=== PATIENT | male | born 2000 | race Two or more races ===

== ENCOUNTER 2018-11-15 22:40 | Emergency (ER) | payer SELFPAY ==
[~2018-11-15] VITALS: Ht 172.7 cm; Wt 63.5 kg
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
--- NOTE | 2018-11-16 01:53 | NUR ---
Patient discharged to home in stable condition. RX & Written and verbal after care instructions given. Patient verbalizes understanding of instruction. pt was provided w / a school and work noted. pt walked out w/ steady gait
[2018-11-16 01:56] VITALS: BP 121/68
== END 2018-11-16 01:56 | disposition home or self-care (01) ==
LOC: ER 22:44
DX: S66.891A Other injury of other specified muscles, fascia and tendons at wrist and hand level, right hand, initial encounter (principal); M54.5 Low back pain; M54.2 Cervicalgia; Z90.89 Acquired absence of other organs; V49.49XA Driver injured in collision with other motor vehicles in traffic accident, initial encounter; Y93.89 Activity, other specified; Y92.89 Other specified places as the place of occurrence of the external cause; Y99.8 Other external cause status
CPT/HCPCS: 72040; 72100; 73140; 99283; L0172

== ENCOUNTER 2021-09-17 12:41 | Emergency (ER) | payer MEDICAID, OTHER ==
[~2021-09-17] VITALS: Ht 167.6 cm; Wt 63.5 kg
[2021-09-17 12:49] VITALS: BP 123/69
--- NOTE | 2021-09-17 12:49 | NUR ---
MEDICATION REFILL FOR RITALIN 10MG/DAILY. WILL NEED A NEW PMD D/T INSURANCE
[2021-09-17] MEDS ORDERED: METH-359 PO (13:26)
--- NOTE | 2021-09-17 13:31 | NUR ---
Patient discharged to home in stable condition. Written and verbal after care instructions given. Patient verbalizes understanding of instruction.
== END 2021-09-17 13:32 | disposition home or self-care (01) ==
LOC: ER 12:58
DX: Z76.0 Encounter for issue of repeat prescription (principal); F90.9 Attention-deficit hyperactivity disorder, unspecified type

== ENCOUNTER 2021-09-18 12:32 | Emergency (ER) | payer OTHER ==
[~2021-09-18] VITALS: Ht 170.2 cm; Wt 63.5 kg
[~2021-09-18 12:32] MED LIST: METH-359 PO
[2021-09-18 12:39] VITALS: BP 109/97
--- NOTE | 2021-09-18 13:06 | NUR ---
dPatient discharged to home in stable condition. Written and verbal after care instructions given. Patient verbalizes understanding of instruction.
== END 2021-09-18 13:06 | disposition home or self-care (01) ==
LOC: ER 12:40
DX: S60.221A Contusion of right hand, initial encounter (principal); Z79.899 Other long term (current) drug therapy; X58.XXXA Exposure to other specified factors, initial encounter; Y93.89 Activity, other specified; Y92.89 Other specified places as the place of occurrence of the external cause; Y99.8 Other external cause status
CPT/HCPCS: 73130-TC

== ENCOUNTER 2022-10-30 13:46 | Emergency (ER) | payer OTHER ==
[~2022-10-30] VITALS: Ht 172.7 cm; Wt 65.8 kg
[2022-10-30 14:26] VITALS: BP 109/63; TEMP 98.1; O2SAT 97
[2022-10-30] MEDS: TDAP [DIPH/PERTUSSIS/TET] 0.5 ML VIAL IM ONE (14:28)
[2022-10-30] MEDS ORDERED: IBUP-1955 PO (14:54)
== END 2022-10-30 15:14 | disposition home or self-care (01) ==
LOC: ER 13:46
DX: S51.012A Laceration without foreign body of left elbow, initial encounter (principal); W26.8XXA Contact with other sharp object(s), not elsewhere classified, initial encounter; Y93.89 Activity, other specified; Y92.89 Other specified places as the place of occurrence of the external cause; Y99.8 Other external cause status
CPT/HCPCS: 12001; 99282; A6403